=== PATIENT | female | born 1990 | race African-American/Black ===

== ENCOUNTER 2016-07-27 18:43 | Emergency (ER) | payer SELFPAY ==
[~2016-07-27] VITALS: Ht 175.3 cm; Wt 131.5 kg
[~2016-07-27 18:43] MED LIST: AUGMENTIN TAB875 MG PO; KEFLEX500 MG ORAL; MACROBID 100 M100 MG PO; MACROBID100 MG ORAL; NKM
[2016-07-27] MEDS ORDERED: IBUPROFEN600 MG ORAL (19:16)
[2016-07-27] MEDS ORDERED: AMOXICILLIN500 MG ORAL (19:16)
[2016-07-27 19:25] VITALS: BP 141/106
--- NOTE | 2016-07-27 22:05 | Emergency Room Report ---
History of Present Illness General Chief Complaint: Sore Throat Source: Patient Present Illness [facility] The patient is a 26-year-old female presenting with sore throat and subjective fevers for the past week. Pain is described as an 8/10 dull ache primarily to the left side of the throat. It is worse with swallowing. She denies any sick contacts or recent travel. She denies any other symptoms including nausea, vomiting, cough, shortness of breath, rash Allergies: Coded Allergies: No Known Allergies (Unverified , 03/22/12) Patient History Past Medical History: see triage record Pertinent Family History: none Last Menstrual Period: now Now: No Reviewed Nursing Documentation: PMH: Agreed, PSxH: Agreed Nursing Documentation-PMH Past Medical History: No History, Except For Hx Asthma: Yes - STREP THROAT Review of Systems All Other Systems: negative except mentioned in HPI Physical Exam Vital Signs Date Time Temp Pulse Resp B/P Pulse Ox O2 Delivery O2 Flow Rate FiO2 07/27/16 18:50 98.1 75 20 141/106 98 Room Air Sp02 EP Interpretation: reviewed, normal General Appearance: no apparent distress, alert, GCS 15, non-toxic Head: normocephalic, atraumatic Eyes: bilateral eye PERRL, bilateral eye normal inspection ENT: hearing grossly normal, no angioedema, normal voice, TMs + canals normal, uvula midline, tonsillar swelling, pharyngeal erythema, tonsillar exudate Neck: full range of motion, supple/symm/no masses Respiratory: chest non-tender, lungs clear, normal breath sounds, speaking full sentences Musculoskeletal: back normal, gait/station normal, normal range of motion, non- tender Neurologic: alert, oriented x3, responsive, motor strength/tone normal, sensory intact, speech normal Psychiatric: judgement/insight normal, memory normal, mood/affect normal, no suicidal/homicidal ideation Skin: normal color, no rash, warm/dry, well hydrated Lymphatic: no adenopathy Medical Decision Making PA Attestation Dr. Casiano is my supervising physician. Patient management was discussed with my supervising physician Diagnostic Impression: Primary Impression: Pharyngitis, acute Qualified Codes: J02.9 - Acute pharyngitis, unspecified ER Course The patient is a 26-year-old female presenting with sore throat and subjective fevers Differential diagnosis include but not limited to pharyngitis, sinusitis, AOM, bronchitis, PNA Physical exam: Vitals within normal limits. Afebrile. No apparent distress HEENT exam: There is bilateral tonsillar edema, erythema, and exudate. Uvula midline. Moist mucous membranes. There is bilateral cervical lymphadenopathy. Lungs are clear to auscultation bilaterally Skin is warm and dry. No rash The patient will be discharged home with a prescription for amoxicillin and is given ER precautions. Patient will followup with primary care Last Vital Signs Date Time Temp Pulse Resp B/P Pulse Ox O2 Delivery O2 Flow Rate FiO2 07/27/16 19:25 98.1 20 141/106 98 Room Air 07/27/16 18:50 75 Status: improved Disposition: HOME, SELF-CARE Condition: Improved Scripts Amoxicillin* (AMOXIL*) 500 Mg Capsule 500 MG ORAL Q12HR, #14 CAP Prov: LOREN LONG.AKassi 07/27/16 Ibuprofen* (MOTRIN*) 600 Mg Tablet 600 MG ORAL Q8H Y for For Pain, #30 TAB 0 Refills Prov: LOREN LONG.Lux 07/27/16 Referrals: NOT CHOSEN IPA/,REFERRING (PCP) Patient Instructions: Sore Throat Additional Instructions: I discussed my findings with the patient. All questions and concerns have been answered. Treatment and medication compliance have been addressed. I advised the patient that they need to follow up with PMD in 3-5 days. Return to ED if pain remains or worsens, cough worsens or remains, you notice blood in your sputum, you notice wheezing, you experience a fever, or if needed for any reason. Patient verbalized understanding of discharge instructions. LOREN LONG July 27, 2016 22:04
== END 2016-07-27 19:19 | disposition home or self-care (01) ==
LOC: EMR 19:12
DX: J02.9 Acute pharyngitis, unspecified (principal); J45.909 Unspecified asthma, uncomplicated
CPT/HCPCS: 99284

== ENCOUNTER 2018-12-06 19:09 | Emergency (ER) | payer OTHER ==
[~2018-12-06] VITALS: Ht 175.3 cm; Wt 122.0 kg
[~2018-12-06 19:09] MED LIST changes: +AMOXICILLIN500 MG ORAL; +IBUPROFEN600 MG ORAL
--- NOTE | 2018-12-06 19:15 | NUR ---
ED Nurse Note: Pt walked in c/o left lower back pain x 3 days, denies any recent injuries. No stated medical history. alert and oriented, verbally responsive. Breathing even and unlabored. VSS.
[2018-12-06 19:29] VITALS: BP 113/71
--- NOTE | 2018-12-06 19:45 | NUR ---
ED Nurse Note: Urine sent to lab.
[2018-12-06 19:56] LABS: APPEARANCE,URINE SLIGHTLY CLOUDY; BILIRUBIN, URINE NEGATIVE (NEGATIVE); GLUCOSE, URINE (UA) NEGATIVE (NEGATIVE); KETONES,URINE NEGATIVE (NEGATIVE); LEUKOCYTE ESTERASE ,URINE 1+ (NEGATIVE); NITRITE,URINE NEGATIVE (NEGATIVE); PH,URINE 6 (4.5-8.0); PROTEIN,URINE NEGATIVE (NEGATIVE); UROBILINOGEN,URINE 1 MG/DL (0.0-1.0)
--- NOTE | 2018-12-06 19:56 | NUR ---
Note viktoria in EDM - 12/06/18 at 2015 by NADIA ER DISCHARGE NOTE: Patient is cleared to be discharged per ERMD, pt is aox4, on room air, with stable vital signs. pt was given dc and prescription instructions, pt was able to verbalize understanding, pt id band removed. pt is able to ambulate with steady gait. pt took all belongings.
[2018-12-06 19:57] LABS: COLOR,URINE YELLOW
--- NOTE | 2018-12-06 20:26 | Emergency Room Report ---
History of Present Illness General Chief Complaint: Lower Back Pain or Injury Source: Patient Present Illness HPI 28-year-old female with no significant past medical history with obesity here complaining of 2 days of left lower back pain however denies any urinary frequency and urgency. Denies dysuria. Denies fever and chills, hematuria. Rating the pain 10 out of 10 upon laying down her back patient has no change in ROM and denies saddle paresthesia, tingling numbness. Denies pain radiation. Has not taken medication for pain. Denies any heavy lifting or recent fall or injury. Denies chest pain, shortness of breath, palpitation, abdominal pain, nausea vomiting or other associated symptoms.LMP 2 wks ago regular Allergies: Coded Allergies: No Known Allergies (Unverified , 03/22/12) Patient History Past Medical History: see triage record Past Surgical History: unable to obtain Pertinent Family History: none Last Menstrual Period: 11/12/18 Now: No Immunizations: UTD Reviewed Nursing Documentation: PMH: Agreed; PSxH: Agreed Nursing Documentation-PMH Past Medical History: No Stated History Hx Asthma: Yes - STREP THROAT Review of Systems All Other Systems: negative except mentioned in HPI Physical Exam Vital Signs Date Time Temp Pulse Resp B/P (MAP) Pulse Ox O2 Delivery O2 Flow Rate FiO2 12/06/18 19:12 98.6 69 18 113/71 (85) 97 12/06/18 19:29 Room Air Sp02 EP Interpretation: reviewed, normal General Appearance: no apparent distress, alert, GCS 15, non-toxic Head: normocephalic, atraumatic Eyes: bilateral eye normal inspection, bilateral eye PERRL ENT: hearing grossly normal, normal pharynx, no angioedema, normal voice Neck: normal inspection, full range of motion, supple Respiratory: chest non-tender, lungs clear, normal breath sounds, speaking full sentences Cardiovascular #1: regular rate, rhythm, no edema, no murmur, no rub Gastrointestinal: normal bowel sounds, non tender, soft, non-distended, no guarding, no rebound Rectal: deferred Genitourinary: normal inspection, no CVA tenderness Musculoskeletal: back normal, gait/station normal, normal range of motion, non- tender, calf tenderness Neurologic: alert, oriented x3, responsive, motor strength/tone normal, sensory intact, speech normal Psychiatric: judgement/insight normal, memory normal, mood/affect normal, no suicidal/homicidal ideation Skin: no rash Lymphatic: no adenopathy Medical Decision Making PA Attestation All my diagnosis and treatment plans were reviewed ad discussed with my supervising physician Dr. Hernández Diagnostic Impression: Primary Impression: Lumbar strain Additional Impression: UTI (urinary tract infection) ER Course 28-year-old female with no significant past medical history with obesity here complaining of 2 days of left lower back pain however denies any urinary frequency and urgency. Denies dysuria. Denies fever and chills, hematuria. Rating the pain 10 out of 10 upon laying down her back patient has no change in ROM and denies saddle paresthesia, tingling numbness. Denies pain radiation. Has not taken medication for pain. Denies any heavy lifting or recent fall or injury. Denies chest pain, shortness of breath, palpitation, abdominal pain, nausea vomiting or other associated symptoms.LMP 2 wks ago regular Ddx considered but are not limited to: Lumbar spine sprain, strain, fracture, contusion, neuropathy Vital signs: are WNL, pt. is afebrile H&PE are most consistent with: Lumbar strain, urinary tract infection ORDERS: UA, urine , no need for x-ray as patient did not fall or injure herself. Macrobid, ibuprofen, Robaxin ER intervention: none DISCHARGE: At this time pt. is stable for d/c to home. Will provide printed patient care instructions, and any necessary prescriptions. Care plan and follow up instructions have been discussed with the patient prior to discharge. Patient to follow-up with her primary care provider worsening symptoms return to the emergency room alternate between icing and heating the affected area Last Vital Signs Date Time Temp Pulse Resp B/P (MAP) Pulse Ox O2 Delivery O2 Flow Rate FiO2 12/06/18 19:29 98.6 18 113/71 97 Room Air 12/06/18 19:12 69 Disposition: HOME, SELF-CARE Condition: Stable Scripts Methocarbamol* (ROBAXIN-500*) 500 Mg Tablet 500 MG ORAL TID PRN for For Pain, #15 TAB 0 Refills Prov: Manuel Fox 12/06/18 Ibuprofen (Ibu) 800 Mg Tablet 800 MG PO BID, #20 TAB Prov: Manuel Fox 12/06/18 Nitrofurantoin Monohyd/M-Cryst* (MACROBID 100 MG*) 100 Mg Capsule 100 MG ORAL EVERY 12 HOURS for 7 Days, #14 CAP Prov: Manuel Fox 12/06/18 Patient Instructions: Lumbosacral Strain, Urinary Tract Infection, [id number] Additional Instructions: Take medication as directed follow-up with your primary care provider avoid strenuous physical activity Manuel Fox Dec 06, 2018 20:26
[2018-12-06] MEDS ORDERED: ROBAXIN-500MG ORAL (20:27)
[2018-12-06] MEDS ORDERED: IBU800 MG PO (20:27)
[2018-12-06] MEDS ORDERED: NITROFURANTOIN100 M2 ORAL (20:27)
[2018-12-06 20:39] VITALS: BP 125/78
--- NOTE | 2018-12-06 20:39 | NUR ---
ED Nurse Note: Pt cleared by health care Provider for discharge. DC instructions/prescription was given and explained to pt and verbalized understanding of teachings. All medical deviecs such as ID band removed. Pt is AAO x4, ambulatory and left with all personal belongings.
== END 2018-12-06 20:39 | disposition home or self-care (01) ==
LOC: EMR 19:46
DX: S39.012A Strain of muscle, fascia and tendon of lower back, initial encounter (principal); N39.0 Urinary tract infection, site not specified; E66.9 Obesity, unspecified; Z68.39 Body mass index [BMI] 39.0-39.9, adult; X58.XXXA Exposure to other specified factors, initial encounter; Y92.9 Unspecified place or not applicable
CPT/HCPCS: 81001; 81025; 87086; Z7502; 99283

== ENCOUNTER 2019-09-10 21:28 | Emergency (ER) | payer OTHER ==
[~2019-09-10] VITALS: Ht 175.3 cm; Wt 113.4 kg
[~2019-09-10 21:28] MED LIST changes: +IBU800 MG PO; +NITROFURANTOIN100 M2 ORAL; +ROBAXIN-500MG ORAL
[2019-09-10 22:03] VITALS: BP 122/72
[2019-09-10] MEDS ORDERED: LIDODERM700 M1 TOPIC (23:01)
[2019-09-10] MEDS ORDERED: TYLENOL EXTRA500 MG ORAL (23:01)
[2019-09-10 23:27] VITALS: BP 132/75
--- NOTE | 2019-09-11 00:09 | Emergency Room Report ---
History of Present Illness General Chief Complaint: Multiple Trauma/Fall Source: Patient Present Illness HPI 29-year-old female presents complaining of right-sided rib pain. States that last week she had a mechanical trip and fall while hiking. Landed on her right side. Notes pain underneath her right breast. Dull, 7 out of 10, nonradiating. Denies shortness of breath. Denies any other injuries. No other aggravating relieving factors. 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 Patient History Past Medical History: none Past Surgical History: none Pertinent Family History: none Social History: Denies: smoking, alcohol use, drug use Last Menstrual Period: 08/21 Now: No : 2 Para: 1 Immunizations: UTD Reviewed Nursing Documentation: PMH: Agreed; PSxH: Agreed Nursing Documentation-PMH Past Medical History: No Stated History Hx Asthma: Yes - STREP THROAT Review of Systems All Other Systems: negative except mentioned in HPI Physical Exam Vital Signs Date Time Temp Pulse Resp B/P (MAP) Pulse Ox O2 Delivery O2 Flow Rate FiO2 09/10/19 21:33 98.2 80 18 116/76 (89) 98 Room Air Sp02 EP Interpretation: reviewed, normal General Appearance: no apparent distress, alert, GCS 15, non-toxic, obese Head: normocephalic, atraumatic Eyes: bilateral eye normal inspection, bilateral eye PERRL ENT: hearing grossly normal, normal pharynx, no angioedema, normal voice Neck: full range of motion, supple/symm/no masses Respiratory: lungs clear, normal breath sounds, speaking full sentences, other - reproducible right lower anterior rib pain Cardiovascular #1: regular rate, rhythm, no edema Cardiovascular #2: 2+ carotid (R), 2+ carotid (L), 2+ radial (R), 2+ radial (L) , 2+ dorsalis pedis (R), 2+ dorsalis pedis (L) Gastrointestinal: normal bowel sounds, non tender, soft, non-distended, no guarding, no rebound Rectal: deferred Genitourinary: normal inspection, no CVA tenderness Musculoskeletal: back normal, normal range of motion, gait/station normal, non- tender Neurologic: alert, motor strength/tone normal, oriented x3, sensory intact, responsive, speech normal Psychiatric: judgement/insight normal, memory normal, mood/affect normal, no suicidal/homicidal ideation Reflexes: 3+ bicep (R), 3+ bicep (L), 3+ tricep (R), 3+ tricep (L), 3+ knee (R) , 3+ knee (L) Skin: no rash Lymphatic: no adenopathy Medical Decision Making Diagnostic Impression: Primary Impression: Rib contusion Qualified Codes: S20.211A - Contusion of right front wall of thorax, initial encounter ER Course Hospital Course 29-year-old female presents with right-sided rib pain status post fall Differential diagnoses include: Fracture, dislocation, sprain, contusion Clinical course Patient placed on stretcher. After initial history and physical, I ordered chest x-ray. Patient declined pain meds Xrays prelim read shows no acute fracture, pneumothorax. I discussed findings with patient. Will discharge home with medications. Safe for discharge with close outpatient follow-up. Diagnosis - rib contusion Stable and discharged to home with prescription for Tylenol, Lidoderm. weight bear as tolerated. Followup with PMD. Return to ED if symptoms recur or worsen Chest X-Ray Diagnostic Results Chest X-Ray Diagnostic Results : Chest X-Ray Ordered: Yes # of Views/Limited/Complete: 1 View Indication: Other - Pain EP Interpretation: Yes Interpretation: no consolidation, no effusion, no pneumothorax, no acute cardiopulmonary disease Impression: No acute disease Electronically Signed by: Electronically signed by Roger Casiano MD Last Vital Signs Date Time Temp Pulse Resp B/P (MAP) Pulse Ox O2 Delivery O2 Flow Rate FiO2 09/10/19 23:27 98.2 78 20 132/75 99 Room Air Status: improved Disposition: HOME, SELF-CARE Condition: Stable Scripts Lidocaine Patch* (Lidoderm Patch*) 1 Each Adh..patch 1 PATCH TOPIC DAILY, #7 PATCH 0 Refills Patch(es) may remain in place for up to 12 hours in any 24-hour period. Prov: Roger Casiano MD 09/10/19 Acetaminophen* (TYLENOL EXTRA STRENGTH*) 500 Mg Tablet 500 MG ORAL Q8H PRN for Prn Headache/Temp > 101, #30 TAB 0 Refills Prov: Roger Casiano MD 09/10/19 Referrals: NON PHYSICIAN (PCP) [facility] Patient Instructions: Rib Contusion Roger Casiano MD Sep 11, 2019 00:09
--- NOTE | 2019-09-11 10:07 | Diagnostic Imaging Report ---
Procedure: XRAY Chest 1v Reason for study: Right rib pain status post fall 6 days ago. Comparison films: 10/25/2010. FINDINGS: A single one view chest is obtained. Vascularity is normal. The lung boles are clear bilaterally. Cardiac and mediastinal silhouette are within normal limits. CP angles are sharp. The bony thorax appear unremarkable. IMPRESSION: NO ACUTE CARDIOPULMONARY DISEASE.
== END 2019-09-10 23:05 | disposition home or self-care (01) ==
LOC: EMR 22:04
DX: S20.211A Contusion of right front wall of thorax, initial encounter (principal); W01.0XXA Fall on same level from slipping, tripping and stumbling without subsequent striking against object, initial encounter; Y92.9 Unspecified place or not applicable; E66.9 Obesity, unspecified; Z68.36 Body mass index [BMI] 36.0-36.9, adult
CPT/HCPCS: 71045; Z7502; 99283